=== PATIENT | male | born 1965 | race Caucasian/White ===

== ENCOUNTER → 2018-01-13 | Day surgery (SDC) | payer OTHER ==
[~2018-01-13] MED LIST: IV RINGERS,LACTATED 1000ML 1,000 ML IV SCH; LIDOCAINE 1% PF 2 ML VIAL. ID PRN; LIDOCAINE 1% PF 5 ML VIAL. ONE; MELO15TA6 PO; MIDAZOLAM HCL/PF 2 MG/2 ML VIAL. IV PRN; fentaNYL PF VIAL 100 MCG/2 ML VIAL IV PRN
[2018-01-13 17:31] VITALS: BP 104/66
--- NOTE | 2018-01-16 16:07 | PATHOLOGY ---
[facility] Accession Number: [id number] . 01 Material submitted: . SIGMOID COLON BX POLYP . 01 Clinical history: . CRC screening . 02 Diagnosis: Colon biopsy, sigmoid colon polyp: - Tubular adenoma. [facility]/01/16/2018 . 02 Comment: There is no high-grade dysplasia or evidence of malignancy. (JPM:[facility] 01/16/2018) . 02 Electronically signed: . Andi Rowley MD, Pathologist NPI- [id number] . 01 Gross description: . Received in formalin labeled "Eric Fowler, sigmoid colon polyp BX," is a single segment of carter soft tissue measuring 0.4 cm in maximum dimension. The specimen is entirely submitted in cassette A1. ([facility]SD; 01/14/2018) TOB/TOB . 02 Pathologist provided ICD-10: D12.5 . 02 CPT . 038561 Specimen Comment: A courtesy copy of this report has been sent to Specimen Comment: [phone], . Specimen Comment: Report sent to / DR JANE [facility]formed [facility]: [facility] [address] [facility] [facility] [address], [place] [id number] MD Ke Urias MD Phone: [phone] Performed at: 02 [facility] [address] [place], [place] [id number] MD Andi Rowley MD Phone: [phone]
== END | disposition home or self-care (01) ==
LOC: SURG 15:42
PROVIDERS: ATTEND Internal Medicine Gastroenterology
DX: Z12.11 Encounter for screening for malignant neoplasm of colon (principal); D12.5 Benign neoplasm of sigmoid colon; K57.30 Diverticulosis of large intestine without perforation or abscess without bleeding; K64.0 First degree hemorrhoids
CPT/HCPCS: 45380; 45385